=== PATIENT | female | born 1975 | race Caucasian/White ===

== ENCOUNTER → 2020-07-01 | Outpatient (CLI) | payer BC ==
--- NOTE | 2020-07-07 11:38 | MM ---
Reason for exam: screening (asymptomatic). Last mammogram was performed 1 year and 9 months ago. History: Patient history of other cancer. Family history of breast cancer in paternal aunt. Physical Findings: A clinical breast exam by your physician is recommended on an annual basis and results should be correlated with mammographic findings. MG 3D Screening Mammo W/Cad Bilateral CC and MLO view(s) were taken. Prior study comparison: September 19, 2018, mammogram, performed at [facility]. August 19, 2016, mammogram, performed at [facility]. The breast tissue is extremely dense which could obscure a lesion on mammography. No significant changes when compared with prior studies. ASSESSMENT: Benign, BI-RAD 2 RECOMMENDATION: Routine screening mammogram of both breasts in 1 year.
== END | disposition home or self-care (01) ==
LOC: RADMAMWWP 16:35
PROVIDERS: ATTEND Family Medicine
DX: Z12.31 Encounter for screening mammogram for malignant neoplasm of breast (principal)
CPT/HCPCS: 77063; 77067

== ENCOUNTER → 2023-01-09 | Outpatient (CLI) | payer BC ==
--- NOTE | 2023-01-09 10:56 | MM ---
Reason for Exam: Clinical finding. Last mammogram was performed 2 year(s) and 7 month(s) ago. Indicated Problems: Lump or thickening of the left side for 2 Month(s). Patient History: Menarche at age 12. Other cancer. Paternal aunt had breast cancer. Last menstrual period: 12/19/2022 Risk Values: Park 5 year model risk: 0.6%. NCI Lifetime model risk: 6.8%. Prior Study Comparison: 08/19/2016 Screening Mammogram, [facility]. 09/19/2018 Screening Mammogram, [facility]. 07/01/2020 Bilateral Screening Mammogram, [facility]. Tissue Density: The breast tissue is extremely dense which could obscure a lesion on mammography. Findings: Analyzed By CAD. No new suspicious mass within either breast. No suspicious group of calcifications within either breast. No architectural distortion identified within either breast. Overall Assessment: Incomplete: need additional imaging evaluation, BI-RAD 0 Management: Diagnostic Breast Ultrasound of the left breast. A clinical breast exam by your physician is recommended on an annual basis and results should be correlated with mammographic findings. This exam should not preclude additional follow-up of suspicious palpable abnormalities. Results were given to the patient verbally at the time of exam. Electronically signed and approved by: Jaleel Villeda D.O.
--- NOTE | 2023-01-09 11:15 | USB ---
Reason for Exam: Clinical finding. Patient History: Menarche at age 12. Other cancer. Paternal aunt had breast cancer. Risk Values: Park 5 year model risk: 0.6%. NCI Lifetime model risk: 6.8%. Prior Study Comparison: 08/19/2016 Screening Mammogram, [facility]. 09/19/2018 Screening Mammogram, [facility]. 07/01/2020 Bilateral Screening Mammogram, [facility]. Findings: The area of palpable concern of the left breast, the axilla of the left breast and the retroareolar of the left breast were scanned. Ultrasound of the left breast at patient's region of palpable abnormality at 10:00 was performed. Additional evaluation nipple and axillary region was performed. There is a ovoid hypoechoic mass at 10:00 9 cm the nipple superficially. No internal color flow identified. This is parallel in orientation with questionable posterior acoustic enhancement. This measures 0.5 x 0.3 x 0.5 cm. This may represent a cyst with debris. Overall Assessment: Probably benign, BI-RAD 3 Management: Diagnostic Breast Ultrasound of the left breast in 6 months. A clinical breast exam by your physician is recommended on an annual basis and results should be correlated with mammographic findings. This exam should not preclude additional follow-up of suspicious palpable abnormalities. Results were given to the patient verbally at the time of exam. Electronically signed and approved by: Jaleel Villeda D.O.
== END | disposition home or self-care (01) ==
LOC: RADMAMWWP 10:20
PROVIDERS: ATTEND Family Medicine
DX: N63.22 Unspecified lump in the left breast, upper inner quadrant (principal); Z80.3 Family history of malignant neoplasm of breast
CPT/HCPCS: 77062; 77066

== ENCOUNTER → 2023-09-11 | Outpatient (CLI) | payer BC ==
--- NOTE | 2023-09-11 08:31 | MM ---
Reason for Exam: Follow-up at short interval from prior study. Last screening mammogram was performed 8 month(s) ago. Patient History: Menarche at age 12. Patient has no children. Other cancer. Paternal aunt had breast cancer. Risk Values: Park 5 year model risk: 1.0%. NCI Lifetime model risk: 10.2%. Prior Study Comparison: 09/19/2018 Screening Mammogram, [facility]. 07/01/2020 Bilateral Screening Mammogram, [facility]. 01/09/2023 Bilateral MG 3D diag mammo w/cad JORDAN, [facility]. Tissue Density: Left: The breast tissue is extremely dense which could obscure a lesion on mammography. Findings: Analyzed By CAD. No new suspicious masses, calcifications or distortions. There remains nothing to correlate with palpable abnormality on prior. Overall Assessment: Incomplete: need additional imaging evaluation, BI-RAD 0 Management: Diagnostic Breast Ultrasound of the left breast. Results were given to the patient verbally at the time of exam. Patient should continue monthly self-breast exams. A clinical breast exam by your physician is recommended on an annual basis. This exam should not preclude additional follow-up of suspicious palpable abnormalities. Note on Park scores and lifetime risk: 1. A Park score greater than 3% is considered moderate risk. If this is the case, consider specialist referral to assess eligibility for a risk reducing agent. 2. If overall lifetime risk for the development of breast cancer is 20% or higher, the patient may qualify for future screening with alternating mammogram and breast MRI. Electronically signed and approved by: Ervin Gomez DO
--- NOTE | 2023-09-11 08:32 | USB ---
Reason for Exam: Follow-up at short interval from prior study. Patient History: Menarche at age 12. Patient has no children. Other cancer. Paternal aunt had breast cancer. Risk Values: Park 5 year model risk: 1.0%. NCI Lifetime model risk: 10.2%. Technique: Method: Targeted. Prior Study Comparison: 09/19/2018 Screening Mammogram, [facility]. 07/01/2020 Bilateral Screening Mammogram, [facility]. 01/09/2023 Bilateral MG 3D diag mammo w/cad JORDAN, [facility]. Findings: The upper section of the breast of the left breast, the axilla of the left breast and the retroareolar of the left breast were scanned. Technique utilized:US breast limited LT Image; Ultrasound imaging of: Area of concern, retroareolar region and axilla. Area at 10:00 9 summation nipple near palpable abnormality in prior is not definitively visualized on today's exam. Another lesion at 10:00 measures interposed identified which has a different morphology measuring 6 x 3 x 5 mm . Another clustered area of cysts at 11:00 3 cm in the nipple measuring in totality 17 x 9 x 14 mm is present with either thin septations versus adjacent cysts. Overall Assessment: Probably benign, BI-RAD 3 Management: Diagnostic Breast Ultrasound of the left breast in 6 months. A clinical breast exam by your physician is recommended on an annual basis and results should be correlated with mammographic findings. This exam should not preclude additional follow-up of suspicious palpable abnormalities. Results were given to the patient verbally at the time of exam. Electronically signed and approved by: Ervin Gomez DO
== END | disposition home or self-care (01) ==
LOC: RADMAMWWP 07:22
PROVIDERS: ATTEND Family Medicine
DX: N60.12 Diffuse cystic mastopathy of left breast (principal); R92.342 Mammographic extreme density, left breast; Z80.3 Family history of malignant neoplasm of breast
CPT/HCPCS: 77061; 77065

== ENCOUNTER → 2024-05-15 | Outpatient (CLI) | payer BC ==
--- NOTE | 2024-05-15 13:45 | MM ---
Reason for Exam: Follow-up at short interval from prior study. Last mammogram was performed 1 year(s) and 4 month(s) ago. Patient History: Menarche at age 12. Patient has no children. Premenopausal. Other cancer. Maternal aunt had breast cancer. Risk Values: Park 5 year model risk: 1.0%. NCI Lifetime model risk: 10.2%. Prior Study Comparison: 08/19/2016 Screening Mammogram, [facility]. 09/19/2018 Screening Mammogram, [facility]. 07/01/2020 Bilateral Screening Mammogram, [facility]. 01/09/2023 Bilateral MG 3D diag mammo w/cad JORDAN, [facility]. 09/11/2023 Left MG 3D diag mammo w/cad LT, [facility]. Tissue Density: The breasts are extremely dense, which lowers the sensitivity of mammography. Findings: Analyzed By CAD. Nodularity left breast. No evidence for right-sided breast mass. No distortion seen. Overall Assessment: Incomplete: need additional imaging evaluation, BI-RAD 0 Management: Diagnostic Breast Ultrasound of the left breast. . Results were given to the patient verbally at the time of exam. Patient should continue monthly self-breast exams. A clinical breast exam by your physician is recommended on an annual basis. This exam should not preclude additional follow-up of suspicious palpable abnormalities. Note on Park scores and lifetime risk: 1. A Park score greater than 3% is considered moderate risk. If this is the case, consider specialist referral to assess eligibility for a risk reducing agent. 2. If overall lifetime risk for the development of breast cancer is 20% or higher, the patient may qualify for future screening with alternating mammogram and breast MRI. [facility], , 05/15/2024 1:42 PM. Electronically signed and approved by: Gee Le M.D. Radiologis
--- NOTE | 2024-05-15 14:14 | USB ---
Reason for Exam: Follow-up at short interval from prior study. Patient History: Menarche at age 12. Patient has no children. Premenopausal. Other cancer. Maternal aunt had breast cancer. Risk Values: Park 5 year model risk: 1.0%. NCI Lifetime model risk: 10.2%. Technique: Method: Targeted. Prior Study Comparison: 07/01/2020 Bilateral Screening Mammogram, [facility]. 01/09/2023 Bilateral MG 3D diag mammo w/cad JORD[facility], [facility]. 09/11/2023 Left MG 3D diag mammo w/cad LT, [facility]. Findings: The upper inner quadrant of the left breast, the axilla of the left breast and the retroareolar of the left breast were scanned. Cluster of cysts left breast 11:00 3 cm from the nipple measuring 1.1 x 0.6 cm.. Overall Assessment: Benign, BI-RAD 2 Management: Screening Mammogram of both breasts in 1 year. A clinical breast exam by your physician is recommended on an annual basis and results should be correlated with mammographic findings. This exam should not preclude additional follow-up of suspicious palpable abnormalities. Results were given to the patient verbally at the time of exam. [facility], , 05/15/2024 2:07 PM. Electronically signed and approved by: Gee Le M.D. Radiologis
== END | disposition home or self-care (01) ==
LOC: RADMAMWWP 13:13
PROVIDERS: ATTEND Family Medicine
DX: R92.8 Other abnormal and inconclusive findings on diagnostic imaging of breast
CPT/HCPCS: 77062; 77066